=== PATIENT | female | born 1980 | race American Indian/Alaskan Native ===

== ENCOUNTER 2018-07-01 20:53 | Inpatient (IN) | payer MEDICAID ==
--- NOTE | 2018-07-01 21:20 | C.PDOC ---
Time Seen by Provider: 07/01/18 21:19 Chief Complaint (Nursing): Psychiatric Evaluation Past Medical History Vital Signs: Last Vital Signs Temp 98.3 F 07/01/18 20:59 Pulse 104 H 07/01/18 20:59 Resp 20 07/01/18 20:59 BP 148/90 07/01/18 20:59 Pulse Ox 98 07/01/18 20:59 - Medical History PMH: HTN - Social History Hx Alcohol Use: Yes Hx Substance Use: No - Immunization History Hx Tetanus Toxoid Vaccination: No Hx Influenza Vaccination: No Hx Pneumococcal Vaccination: No ED Course And Treatment O2 Sat by Pulse Oximetry: 98 Disposition Counseled Patient/Family Regarding: Studies Performed, Diagnosis - Disposition Disposition Time: 21:20
[2018-07-01 21:32] LABS: BASO # 0.1 K/uL (0.0-0.2); BASO % 1.3 % (0.0-2.0); EOS # 0.1 K/uL (0.0-0.7); EOS % 1.9 % (0.0-4.0); HEMOGLOBIN 14.9 g/dL (11.0-16.0); LYMPH # 2.4 K/uL (1.0-4.3); LYMPH % 42.4 % (20.0-40.0); MEAN CORPUSCULAR HEMOGLOBIN 30.5 pg (27.0-31.0); MEAN CORPUSCULAR HGB CONC 35.1 g/dL (33.0-37.0); MEAN PLATELET VOLUME 8.1 fL (7.2-11.7); MONO # 0.7 K/uL (0.0-0.8); MONO % 11.4 % (0.0-10.0); NEUT # 2.5 K/uL (1.8-7.0); NRBC % 0.1 % (0.0-2.0); RBC 4.87 Mil/uL (3.80-5.20); RED CELL DISTRIBUTION WIDTH 13.4 % (11.5-14.5); WHITE BLOOD COUNT 5.7 K/uL (4.8-10.8)
[2018-07-01 21:47] LABS: ALB/GLOB RATIO 1.6 (1.0-2.1); ALBUMIN 4.4 g/dL (3.5-5.0); ALT/SGPT 32 U/L (9-52); AST/SGOT 30 U/L (14-36); BLOOD UREA NITROGEN 6 mg/dL (7-17); CALCIUM 9.1 mg/dl (8.6-10.4); GFR NON-AFRICAN AMERICAN > 60
[2018-07-01 22:40] LABS: SQUAMOUS EPITHIAL 19 /hpf (0-5); URINE BACTERIA MANY (<OCC); URINE BILIRUBIN NEGATIVE (NEGATIVE); URINE BLOOD NEGATIVE (NEGATIVE); URINE CLARITY Hazy (Clear); URINE COLOR Yellow (YELLOW); URINE GLUCOSE (UA) 1+ mg/dL (Normal); URINE LEUKOCYTE ESTERASE TRACE Leu/uL (Negative); URINE PROTEIN NEGATIVE (NEGATIVE); URINE UROBILINOGEN NORMAL mg/dL (0.2-1.0)
[2018-07-01 22:52] LABS: BARBITURATES, UR NEGATIVE (NEGATIVE); BENZODIAZEPINES, UR NEGATIVE (NEGATIVE); OPIATES, UR NEGATIVE (NEGATIVE); PHENCYCLIDINE, UR NEGATIVE (NEGATIVE)
--- NOTE | 2018-07-01 23:11 | C.PDOC ---
History Of Present Illness 38 year old female presents to the ED as prescreen for alcohol detox. Patient denies suicidal/homicidal ideation and has no complaints at this time. Time Seen by Provider: 07/01/18 21:19 Chief Complaint (Nursing): Psychiatric Evaluation History Per: Patient History/Exam Limitations: no limitations Onset/Duration Of Symptoms: Hrs Current Symptoms Are (Timing): Still Present Suicide/Self Injury Attempted (Context): None Associated Symptoms: denies: Suicidal Thoughts, Suicidal Plan Additional History Per: Patient Past Medical History Reviewed: Historical Data, Nursing Documentation, Vital Signs Vital Signs: Last Vital Signs Temp 98.2 F 07/02/18 00:00 Pulse 92 H 07/02/18 00:00 Resp 22 07/02/18 00:00 BP 127/82 07/02/18 00:00 Pulse Ox 98 07/02/18 00:00 - Medical History PMH: Diabetes, HTN Denies: Hepatitis, HIV, Seizures, Sexually Transmitted Disease Surgical History: No Surg Hx Family History: States: Unknown Family Hx - Social History Hx Alcohol Use: Yes Hx Substance Use: No - Immunization History Hx Tetanus Toxoid Vaccination: No Hx Influenza Vaccination: No Hx Pneumococcal Vaccination: No Review Of Systems Psych: Positive for: Other (prescreen for alcohol detox ). Negative for: Suicidal ideation Physical Exam - Physical Exam Appears: Non-toxic, No Acute Distress, Other (morbidly obese Black female ) Skin: Normal Color, Warm, Dry Head: Atraumatic, Normacephalic Eye(s): bilateral: Normal Inspection Oral Mucosa: Moist, Other (alcohol on breath ) Neck: Supple Chest: Symmetrical, No Deformity, No Tenderness Cardiovascular: Rhythm Regular, No Murmur Respiratory: Normal Breath Sounds, No Rales, No Rhonchi, No Wheezing Extremity: Normal ROM, Capillary Refill (less than 2 seconds ) Neurological/Psych: Oriented x3, Normal Speech, Normal Cognition ED Course And Treatment - Laboratory Results Result Diagrams: 07/01/18 21:29 07/01/18 21:29 Lab Interpretation: Normal (ua neg (dirty catch, asymptomatic pyuria) etoh 248 H ) Urine POC: Negative O2 Sat by Pulse Oximetry: 98 (on RA) Pulse Ox Interpretation: Normal Progress Note: Bloodwork and urinalysis ordered and reviewed. Reevaluation Time: 23:11 Reassessment Condition: Improved - Physician Consult Information Outcome Of Conversation: 2310: d/w Crisis, ok to admit to Detox Disposition Doctor Will See Patient In The: Hospital Counseled Patient/Family Regarding: Studies Performed, Diagnosis - Disposition Disposition: HOSPITALIZED Disposition Time: 23:11 Condition: GOOD - Clinical Impression Clinical Impression: Alcohol abuse, Depression - Scribe Statement The provider has reviewed the documentation as recorded by the Scribe (Katlin Feldman) Provider Attestation: All medical record entries made by the Scribe were at my direction and personally dictated by me. I have reviewed the chart and agree that the record accurately reflects my personal performance of the history, physical exam, medical decision making, and the department course for this patient. I have also personally directed, reviewed, and agree with the discharge instructions and disposition.
--- NOTE | 2018-07-02 05:25 | PCM.BM ---
<Karla Sam - Last Filed: 07/02/18 05:24> Treatment Plan Problems - Problems identified on initial assessmt ETOH Detox Date Initiated: 07/02/18 Time Initiated: 00:30 Assessment reference: NA Status: Active Treatment assets and liabiliti Patient Assests: good support system, negotiates basic needs Patient Liabilities: substance abuse (etoh), medical problems (diabetes, hypertension) - Milieu Protocol Maintain good personal hygiene: daily Encourage regular showers, daily Remind patient to perform daily oral care, every shift Assist patient to perform ADL's Conduct patient checks and document Observation sheet: Q15 minutes Maintain personal safety: every shift Educate patient to report safety concerns to staff, every shift Monitor environment for contraband/sharps Medication safety: Monitor for expected outcome, potential side effects: every shift, Assess barriers to learning: every shift, Assess readiness for medication education: every shift <Rabia Jackson - Last Filed: 07/03/18 14:30> - Diagnosis (1) Alcohol use disorder, severe, dependence Status: Acute Interventions: 07/03/18 14:31 * Assess 7x/week regarding severity of withdrawal * Educate regarding risks, benefits, side effects and alternatives of medications * Use Motivational Interviewing for abstinence * Use CBT for relapse prevention * Medication management for withdrawal symptoms * Encourage medication assisted treatment * <Ariella Mccallum - Last Filed: 07/04/18 11:05> Family Contact Family involvement: Famliy/SO not involved - Goals for Treatment Patient goals for treatment: Complete detox and transition to outpatient counseling. Discharge/Continuing Care - Education Needs Education Needs: Patient Medication, Patient Diagnosis/Disease Process, Patient Coping Skills, Patient Anger Management skills, Patient Placement options, Patient Community resources - Discharge Discharge Criteria: No longer exhibiting s/s of withdrawal, Reduction of target symptoms Discharge to:: Home, With Family - Treatment Team Participation Patient/Family/SO Statement: 07/04/18 11:04 "I wanna try outpatient counseling..." Discussed with Family/SO: No Was Patient/Family/SO present at Treatment Team Meeting: Yes
--- NOTE | 2018-07-02 09:23 | PCM.PSYCH ---
Initial Psychiatric Evaluation - Initial Psychiatric Evaluation Type of Admission: Voluntary Legal Status: Capacity Chief Complaint (in patient's own words): "Alcohol" History of Present Illness and Precipitating Events: The patient is seen, chart reviewed and case discussed. This is a 38-year-old -[place]enian female, single with 3 children aged 1, 10 and 16. She is unemployed but lives with her sister, her 3 children and sister's child. The patient admits to drinking 2.5 pints of alcohol for the past one year ( started long ago, though) and she also smokes 1 pack per day cigarettes. She denies drug use. She reports DT-like confusion when she doesn't drink , but she was not officially diagnosed. No seizures yet. She says she couldn't stop any other way and she doesn't know how she can do it without admission. She feels depressed and had suicidal ideation but today she feels safe. Past psych history: All treatment but had depression and anxiety in the past. Medical history: Diabetes and high blood pressure. Both of them were not controlled due to her alcoholism. Family psych history: Denies Current Medications: Active Medications Generic Name Dose Route Start Last Admin Trade Name Freq PRN Reason Stop Dose Admin Chlordiazepoxide 25 mg 07/02/18 02:00 07/02/18 06:55 Librium PO 07/06/18 01:59 25 mg Q6 TIFF Administration Taper Chlordiazepoxide 25 mg 07/02/18 09:19 Librium PO Q4H PRN Alcohol Withdrawal Clonidine HCl 0.1 mg 07/02/18 01:28 Catapres PO Q6H PRN Symptoms of alcohol withdrawl Folic Acid 1 mg 07/02/18 10:00 Folic Acid PO DAILY [facility] Hydroxyzine HCl 25 mg 07/02/18 09:19 Atarax PO Q4H PRN Anxiety Ibuprofen 400 mg 07/02/18 09:19 Motrin Tab PO Q6H PRN Pain, moderate (4-7) Lisinopril 10 mg 07/02/18 10:00 Zestril PO DAILY [facility] Metformin HCl 850 mg 07/02/18 10:00 Glucophage PO BID [facility] Multivitamins 1 tab 07/02/18 10:00 Hexavitamin PO DAILY [facility] Nitrofurantoin Macrocrystals 100 mg 07/02/18 09:30 Macrobid PO 07/09/18 09:31 Q12H TIFF Protocol Thiamine HCl 100 mg 07/02/18 10:00 Vitamin B1 Tab PO DAILY TIFF Trazodone HCl 50 mg 07/02/18 01:28 Desyrel PO HS PRN Insomnia Past Psychiatric History - Past Psychiatric History Previous Treatment History: None Pertinent Medical Hx (Current Medical&Sleep Prob, Allergies): Allergies Allergy/AdvReac Type Severity Reaction Status Date / Time Iodine and Iodide Containing Allergy Verified 07/01/18 21:14 Produc Lisinopril 07/01/18 Metformin HCl 07/01/18 Review of Systems - Psychiatric Psychiatric: Abnormal Sleep Pattern, Anhedonia, Anxiety, Behavioral Changes, Change in Appetite, Depression, Difficulty Concentrating, Panic Attacks. absent : Hallucinations, Homicidal Ideation, Paranoia, Suicidal Ideation Mental Status Examination - Personal Presentation Personal Presentation: Looks stated age - Affect Affect: Constricted - Motor Activity Motor Activity: Calm - Reliability in Providing Information Reliability in Providing Information: Good - Speech Speech: Organized - Mood Mood: Depressed, Anxious - Formal Thought Process Formal Thought Process: No Impairment - Cognitive Functions Orientation: Person, Place, Situation, Time Sensorium: Alert Attention/Concentration: Easily distracted Abstract Thinking: Elmer Estimate of Intelligence: Average Judgement: Intact, as evidence by: Insight regarding need for hospitalization Memory: Recent intact, as evidence by: Ability to recall events of the day, Remote intact, as evidenced by: Abilit to recall sig. life events - Risk Risk: Seizure, Withdrawal, Diminished functioning - Strength & Assets Inventory Strength & Assets Inventory: Family support, Cooperative - Limitations Limitations: Other DSM 5 DX - DSM 5 DSM 5 Diagnosis: Alcohol withdrawal Alcohol use disorder, severe Tobacco use disorder, severe Major depressive disorder, single, severe Anxiety disorder unspecified - Recommended/Plan of Treatment Treatment Recommendations and Plan of Treatment: Taper with Librium Gabapentin for augmentation if needed Naltrexone for cravings As needed medications All risks, benefits and alternatives of the meds discussed, and the pt agreed and understood. Attend groups and activities Supportive therapy and psychoeducation AR for abstinence CBT for relapse prevention Encourage MAT Refer to rehab or IOP, and self-help groups Smoking cessation with AR Nicotine patch if needed 34 min Projected ELOS: 4-5 days Prognosis: Good with treatment - Smoking Cessation Smoking Cessation Initiated: Yes
[2018-07-02] MEDS: Multiple Vitamins Tab PO SCH (09:40)
[2018-07-03] MEDS: Multiple Vitamins Tab PO SCH (09:43)
[2018-07-04] MEDS: Multiple Vitamins Tab PO SCH (09:14)
--- NOTE | 2018-07-04 13:31 | PCM.PYCHPN ---
Psychiatric Progress Note - Psychiatric Progress Note Patient seen today, length of contact: 15 min Patient Chief Complaint: "Better" Problems Identified/Issues Discussed: The pt is seen, chart reviewed, case discussed with staff. The pt is compliant with medications and reports no side-effects. Symptoms are improving but needs more time to stabilize. Pt attends groups and activities. Support given, psycho-education provided. After care discussed. Medication Change: Yes (detox changes daily) Medical Record Reviewed: Yes Mental Status Examination - Cognitive Function Orientation: Person, Place, Situation, Time Memory: Intact Attention: WNL Concentration: Poor Association: WNL Fund of Knowledge: WNL - Mood Mood: Depressed, Anxious - Affect Affect: Constricted - Speech Speech: Appropriate - Formal Thought Process Formal Thought Process: No Impairment - Suicidal Ideation Suicidal Ideation: No - Homicidal Ideation Homicidal Ideation: No Goal/Treatment Plan - Goal/Treatment Plan Need for Continued Stay: Discharge may exacerbated symptoms, Severe functional impairment Progress Toward Problem(s) and Goals/Treatment Plan: Taper with Librium Gabapentin for augmentation if needed Naltrexone for cravings As needed medications All risks, benefits and alternatives of the meds discussed, and the pt agreed and understood. Attend groups and activities Supportive therapy and psychoeducation LA for abstinence CBT for relapse prevention Encourage MAT Refer to rehab or IOP, and self-help groups Smoking cessation with LA Nicotine patch if needed
[2018-07-04] MEDS ORDERED: Vitamins A & D Oint UD Foilpak TOP ONE (19:43)
[2018-07-05 08:51] VITALS: BP 106/74; PULSE 97; RESP 19; TEMP 97.8; O2SAT 99
--- NOTE | 2018-07-05 08:52 | PCM.PYCHDC ---
Mental Status Examination - Mental Status Examination Orientation: Person Discharge Summary - Discharge Note Consultations:: List each consultation separately and include: 1. Reason for request. 2. Findings. 3. Follow-up Summary of Hospital Course include:: 1. Description of specific treatment plan utilized for patients during their course of treatmen. 2. Summarize the time- course for resolution of acute symptoms and/or regressed behaviors. 3. Describe issues identified and worked on during hospitalization. 4. Describe medication utilized. 5. Describe medical problems identified and treated. 6. Reassessment of suicide risk Summary of Hospital Course: The patient is seen, chart reviewed and case discussed. This is a 38-year-old -[place] female, single with 3 children aged 1, 10 and 16. She is unemployed but lives with her sister, her 3 children and sister's child. The patient admits to drinking 2.5 pints of alcohol for the past one year ( started long ago, though) and she also smokes 1 pack per day cigarettes. She denies drug use. She reports DT-like confusion when she doesn't drink , but she was not officially diagnosed. No seizures yet. She says she couldn't stop any other way and she doesn't know how she can do it without admission. She feels depressed and had suicidal ideation but today she feels safe. Past psych history: All treatment but had depression and anxiety in the past. Medical history: Diabetes and high blood pressure. Both of them were not controlled due to her alcoholism. Family psych history: Denies She went to [facility], Intensive Outpatient Program at [address] [place] [address] - Diagnosis (1) Alcohol use disorder, severe, dependence Current Visit: Yes Status: Acute - Final Diagnosis (DSM 5) Condition upon Discharge: GOOD Disposition: HOME/ ROUTINE Follow-up Treatment Plan: Taper with Librium Gabapentin for augmentation if needed Naltrexone for cravings As needed medications All risks, benefits and alternatives of the meds discussed, and the pt agreed and understood. Attend groups and activities Supportive therapy and psychoeducation [place] for abstinence CBT for relapse prevention Encourage MAT Refer to rehab or IOP, and self-help groups Smoking cessation with GA Nicotine patch if needed Prescriptions/Medication Reconciliation: Lisinopril [Zestril] 10 mg PO DAILY #30 tab metFORMIN [glucOPHAGE] 1,000 mg PO BID #60 tab Multivitamins [Hexavitamin] 1 tab PO DAILY #30 tab Naltrexone [Revia] 50 mg PO DAILY #30 tab Nitrofurantoin Macrocrystals [Macrobid] 100 mg PO Q12H #6 cap traZODone [Desyrel] 100 mg PO HS PRN #30 tab PRN Reason: Insomnia
[2018-07-05] MEDS: Multiple Vitamins Tab PO SCH (09:47)
== END 2018-07-05 09:45 | disposition home or self-care (01) | DRG 430 ==
LOC: C.ER 20:53 → C.7D 23:11
PROVIDERS: ADMIT Psychiatry & Neurology Psychiatry; ATTEND Psychiatry & Neurology Psychiatry
PROC: GZHZZZZ Group Psychotherapy (ICD-10-PCS; principal; 2018-07-01)
PROC: GZ56ZZZ Individual Psychotherapy, Supportive (ICD-10-PCS; 2018-07-01)
DX: F32.2 Major depressive disorder, single episode, severe without psychotic features (principal); F10.230 Alcohol dependence with withdrawal, uncomplicated; F17.210 Nicotine dependence, cigarettes, uncomplicated; F41.9 Anxiety disorder, unspecified; E11.9 Type 2 diabetes mellitus without complications; I10 Essential (primary) hypertension; F10.220 Alcohol dependence with intoxication, uncomplicated; Y90.8 Blood alcohol level of 240 mg/100 ml or more